=== PATIENT | female | born 1995 | race Caucasian/White ===

== ENCOUNTER 2020-03-12 14:24 | Emergency (ER) | payer OTHER ==
[~2020-03-12] VITALS: Ht 177.8 cm; Wt 70.8 kg
[~2020-03-12 14:24] MED LIST: CIPRO500 MG PO
[2020-03-12] MEDS ORDERED: HUMIRA40 MG/0.2 (14:35)
[2020-03-12] MEDS ORDERED: APRISO0.375 GM (14:35)
== END 2020-03-12 18:38 | disposition home or self-care (01) ==
LOC: ER 14:24
DX: S80.12XA Contusion of left lower leg, initial encounter (principal); S00.83XA Contusion of other part of head, initial encounter; V49.9XXA Car occupant (driver) (passenger) injured in unspecified traffic accident, initial encounter; Y93.89 Activity, other specified; Y92.488 Other paved roadways as the place of occurrence of the external cause; Y99.8 Other external cause status

== ENCOUNTER → 2020-05-23 | Emergency (ER) | payer OTHER ==
[~2020-05-23] VITALS: Ht 175.3 cm; Wt 58.1 kg
[~2020-05-23] MED LIST changes: +APRISO0.375 GM; +HUMIRA40 MG/0.2; +NYSTATIN100000 UNI PO
== END | disposition home or self-care (01) ==
LOC: ER 21:54
DX: M94.0 Chondrocostal junction syndrome [Tietze] (principal); B37.0 Candidal stomatitis